=== PATIENT | female | born 1940 | race Caucasian/White ===

== ENCOUNTER 2023-04-27 10:40 | Inpatient (IN) | payer MEDICARE ==
[~2023-04-27] VITALS: Ht 175.3 cm; Wt 103.4 kg
[2023-04-27] MEDS: aspirin 81mg tab.chew PO ONE ×2 (11:00→17:44)
[2023-04-27 13:21] LABS: BASOPHILS % (AUTO) 0.6 % (0-1); EOSINOPHILS # (AUTO) 0.2 X10'3 (0-0.9); EOSINOPHILS % (AUTO) 2.3 % (0-6); HEMATOCRIT 45.4 % (35.0-45.0); LYMPHOCYTES # (AUTO) 1.8 X10'3 (1.1-4.8); LYMPHOCYTES % (AUTO) 23.1 % (21-51); MEAN CORPUSCULAR HEMOGLOBIN 31.1 PG (27.0-31.0); MEAN CORPUSCULAR VOLUME 94.2 FL (78-98); MEAN PLATELET VOLUME 9.9 FL (7.4-10.4); MONOCYTES # (AUTO) 1.1 X10'3 (0-0.9); MONOCYTES % (AUTO) 14.5 % (2-12); NEUTROPHILS # (AUTO) 4.5 X10'3 (1.8-7.7); NEUTROPHILS % (AUTO) 59.5 % (42-75); PLATELET COUNT 200 X10'3 (140-440); RED BLOOD COUNT 4.82 X10'6 (4.20-5.60); RED CELL DISTRIBUTION WIDTH 13.8 % (11.5-14.5); WHITE BLOOD COUNT 7.7 X10'3 (4.5-11.0)
[2023-04-27 14:05] LABS: ALBUMIN 3.8 G/DL (3.4-5.0); ANION GAP 10 (8-16); BLOOD UREA NITROGEN 24 MG/DL (7-18); BUN/CREATININE RATIO 39.3 (10.0-20.0); CALCIUM 9.3 MG/DL (8.5-10.1); CHLORIDE 104 MMOL/L (99-107); CREATININE 0.61 MG/DL (0.40-0.90); GLUCOSE 111 MG/DL (70-104); MAGNESIUM 2.4 MG/DL (1.5-2.4); POTASSIUM 3.8 MMOL/L (3.5-5.1); PRO BRAIN NATRIURETIC PEPTIDE 115 PG/ML (0-450); SODIUM 141 MMOL/L (135-145); eCRCL 76 ML/MIN; eGFR > 90 ML/MIN
[2023-04-27] MEDS: cloNIDine 0.1 mg tablet PO ONE (16:41)
[2023-04-27 18:29] LABS: BILIRUBIN,URINE NEGATIVE (Neg); CLARITY,URINE CLEAR (Clear); COLOR,URINE YELLOW (Yellow); GLUCOSE, URINE NEGATIVE (Neg); KETONES,URINE NEGATIVE (Neg); LEUKOCYTE ESTERASE ,URINE NEGATIVE (Neg); NITRITES, URINE NEGATIVE (Neg); OCCULT BLOOD,URINE NEGATIVE (Neg); PH,URINE 5.5 (4.8-8.0); PROTEIN,URINE NEGATIVE (Neg); UROBILINOGEN,URINE 0.2 E.U/dL (0.2-1.0)
[2023-04-27 18:50] LABS: UA COLLECTION TYPE CLN CATCH MIDSTREAM
[2023-04-27] MEDS ORDERED: LOSA-415 PO (21:41)
[2023-04-27] MEDS ORDERED: MULT-1085 PO (21:42)
[2023-04-27] MEDS ORDERED: ASHW300C2 (21:47)
[2023-04-27] MEDS ORDERED: CALC-1204 (21:47)
[2023-04-27] MEDS ORDERED: FLAX1CAP4 PO (21:47)
[2023-04-27] MEDS ORDERED: TIMO5DRO44 LEFTEYE (21:47)
[2023-04-27] MEDS ORDERED: TIMO5DRO44 RIGHTEYE (21:47)
[2023-04-27] MEDS ORDERED: GING250C (21:47)
[2023-04-27] MEDS: aspirin 325mg tablet PO ONE (22:02)
[2023-04-27] MEDS: clopidogrel 300mg tablet PO ONE (22:02)
[2023-04-27] MEDS: niCARDipine-NS 40mg/200ml IVPB 200 ML IV SCH (23:44)
[2023-04-28] MEDS ORDERED: bisacodyl 10mg suppository rectal RC PRN (00:10)
[2023-04-28] MEDS ORDERED: acetaminophen 325mg tablet PO PRN ×2 (00:10)
[2023-04-28] MEDS ORDERED: acetaminophen 650mg rectal suppository RC PRN (00:10)
[2023-04-28] MEDS ORDERED: magnesium hydroxide 30ml (MOM) UD suspension PO PRN (00:10)
[2023-04-28] MEDS ORDERED: HYDROcodone/acetaminophen 5mg/325mg tablet PO PRN (00:10)
[2023-04-28] MEDS ORDERED: morphine 2 MG/ML inj. syringe IV PRN ×2 (00:10)
[2023-04-28] MEDS ORDERED: ondansetron 4mg rapidly disintigrating tab PO PRN (00:10)
[2023-04-28] MEDS ORDERED: diphenhydrAMINE 25mg capsule PO PRN (00:10)
[2023-04-28] MEDS ORDERED: ondansetron/PF 4mg/2ml inj IV PRN (00:10)
[2023-04-28] MEDS ORDERED: diphenhydrAMINE 50 mg/ml inj IV PRN (00:10)
[2023-04-28] MEDS ORDERED: mag hydrox/Alum hydrox/simeth 30ml oral suspension PO PRN (00:10)
[2023-04-28] MEDS ORDERED: HYDROcodone/acetaminophen 10/325mg tab PO PRN (00:10)
[2023-04-28] MEDS: normal saline 1000ml 1,000 ML IV SCH (02:34)
[2023-04-28 06:52] VITALS: TEMP 97.6
[2023-04-28] MEDS: CefTRIAXone/D5W-Rocephin 1gm 50 ML IV SCH (07:01)
[2023-04-28] MEDS: pantoprazole 40mg Tablet.DR PO SCH (07:01)
[2023-04-28] MEDS: docusate sod 100mg capsule PO SCH (08:00)
[2023-04-28 08:04] LABS: APTT 28 SECONDS (22-32); INR 1.1 INR; PROTHROMBIN TIME 11.4 SECONDS (9.0-12.0)
[2023-04-28 08:29] LABS: HEMOGLOBIN A1C 5.3 % (4.5-6.2)
[2023-04-28 08:34] LABS: MAGNESIUM 2.1 MG/DL (1.5-2.4)
[2023-04-28] MEDS: clopidogrel 75mg tablet PO SCH (09:04)
[2023-04-28] MEDS: aspirin 81mg, enteric-coated 1 TAB TABLET.DR PO SCH (09:04)
[2023-04-28] MEDS: atorvastatin 20mg tablet PO SCH (09:04)
[2023-04-28] MEDS: losartan 50mg tablet PO SCH (09:09)
[2023-04-28] MEDS: timolol 0.5% ophthalmic solution 5ml bottle LEFTEYE SCH (10:41)
[2023-04-28] MEDS: timolol 0.5% ophthalmic solution 5ml bottle RIGHTEYE SCH (10:42)
[2023-04-28] MEDS ORDERED: HYDROchlorothiazide 12.5mg capsule PO SCH (12:25)
[2023-04-28] MEDS ORDERED: LOSA1TAB36 PO (12:44)
[2023-04-28] MEDS ORDERED: ASPI81TA52 PO (12:45)
[2023-04-28] MEDS ORDERED: ATOR20TA66 PO (12:45)
[2023-04-28 13:00] VITALS: BP 137/73; PULSE 82; RESP 18; O2SAT 94
[2023-04-28] MEDS ORDERED: AMOX-580 PO (13:25)
[2023-04-28] MEDS ORDERED: AMOX-115 PO (13:27)
[2023-04-28] MEDS ORDERED: CLOP-32 PO (13:35)
[2023-04-28] MEDS ORDERED: losartan 25mg tablet PO SCH (20:00)
[2023-04-28] MEDS ORDERED: temazepam 15mg capsule PO PRN (21:00)
== END 2023-04-28 13:30 | disposition home or self-care (01) | DRG 305 ==
LOC: ER 10:41 → ED HOLD 04-28 00:15
PROVIDERS: ADMIT Family Medicine; ATTEND Internal Medicine
DX: I16.1 Hypertensive emergency (principal); I69.351 Hemiplegia and hemiparesis following cerebral infarction affecting right dominant side; H70.91 Unspecified mastoiditis, right ear; E78.00 Pure hypercholesterolemia, unspecified; I10 Essential (primary) hypertension; I48.0 Paroxysmal atrial fibrillation; J32.0 Chronic maxillary sinusitis; R53.1 Weakness; Z79.899 Other long term (current) drug therapy; Z79.82 Long term (current) use of aspirin; Z79.02 Long term (current) use of antithrombotics/antiplatelets
CPT/HCPCS: 36415; 70450; 70544; 70551; 71045; 80048; 81003; 82024; 83036; 83605; 83735; 83880; 84146; 84443; 84484; 85025; 85610; 85730; 87040; 93005; 93306; 97161; 97530; 99285; G0378; J0696; J3490